=== PATIENT | female | born 1975 | race African-American/Black ===

== ENCOUNTER 2016-07-06 13:37 | Inpatient (IN) | payer MEDICARE ==
--- NOTE | ~2016-07-06 | EKG ---
PATIENT: MIKKI ESTRADA UNIT #: [id number] Ventricular Rate: 87 BPM Atrial Rate: 87 BPM P-R Interval: 136 ms QRS Duration: 80 ms Q-T Interval: 410 ms QTC Calculation(Bezet): 493 ms P Hart: 56 degrees Calculated R Hart: 66 degrees Calculated T Hart: 78 degrees Diagnosis Line: Normal sinus rhythm Diagnosis Line: Prolonged QT Diagnosis Line: Abnormal ECG Diagnosis Line: When compared with ECG of 06-JUL-2016 18:56, Diagnosis Line: No significant change was found Diagnosis Line: Confirmed by MCYHAL DINERO MD ([id number]) on Diagnosis Line: 07/14/2016 1:31:25 PM INTERPRETING MD: SABRINA
--- NOTE | ~2016-07-06 | HP ---
Unit #: [id number] #: [id number] Patient: MIKKI ESTRADA [address] [place], [place] [address] [id number] MR#: [id number] NAME: MIKKI ESTRADA ROOM: Age: 41 Sex: F Admission Date: 07/06/2016 : 1975 Attending Physician: Jenae Solitario M.D. Primary Care Physician: Humberto Webber M.D. HISTORY AND PHYSICAL CHIEF COMPLAINT Fever. HISTORY OF PRESENT ILLNESS The patient is a 41-year-old female with past medical history of end-stage renal disease on dialysis, diabetes, chronic anemia, hypertension, hyperlipidemia, who presented to the emergency department for evaluation of the above. The patient states that she has not been feeling well since July 02, 2016. She states that she has had nausea, vomiting and diarrhea. She reports three to four bouts of nonbloody emesis and two to three bouts of nonbloody diarrhea within the past 24 hours. She denies any abdominal pain, no chest pain. She has had occasional cough. She has had chills and undocumented fever. She no longer makes but a few drops of urine some days. In the emergency department initial temperature was 103.1, pulse 121, respirations 25, oxygen saturation was 95% on room air. Chest x-ray shows no acute abnormality. White blood cell count is 15.8. Lactic acid is 1.8. She was given vancomycin in the emergency department as well as Tylenol. She is being admitted to [facility] for evaluation and further treatment. PAST MEDICAL HISTORY 1. Hospitalized at [facility] within the past couple of months for fistula placement. 2. Admission to [facility] December 05-2013 for hypertensive urgency. 3. End-stage renal disease on dialysis Saturday, Saturday, Saturday, followed by Dr. Valdivia. 4. Diabetes. 5. Hypertension. 6. Hyperlipidemia. PAST SURGICAL HISTORY 1. Fistula placement. 2. Disc surgery. SOCIAL HISTORY The patient lives with her mom. There is no tobacco or alcohol use. Her code status is a full code. Unit #: [id number] #: [id number] Patient: MIKKI ESTRADA FAMILY HISTORY Family history is notable for her dad having a cerebrovascular accident. ALLERGIES No known allergies. HOME MEDICATIONS Include Hydralazine, Coreg, Imdur, Xifaxan. Home medications will need to be reviewed and verified. REVIEW OF SYSTEMS A complete review of systems is negative except as indicated in the HPI. DIAGNOSTIC STUDIES IMAGING: Chest x-ray shows no acute abnormality. LABORATORY: Lactic acid is 1.8. Comprehensive metabolic panel notable for sodium of 133, chloride is 95, CO2 is 20, glucose 283, BUN 89, creatinine 16.5, anion gap is 18, calcium is 7.2 but corrects to 8 when albumin of 3 is accounted for, amylase and lipase are normal. Complete blood count notable for white blood cell count of 15.8, hemoglobin 10.1, hematocrit 32.8, platelets 120. BNP is 923. PHYSICAL EXAMINATION VITAL SIGNS: Temperature is 103.1. Pulse 121. Respirations 25. Blood pressure 155/86. Oxygen saturation 95% on room air. GENERAL: The patient is an -[place] female who is sleeping but wakes to voice. HEENT: The head is atraumatic. Mucous membranes are moist. NECK: Neck is supple. Trachea is midline. CARDIOVASCULAR: Regular rate and rhythm. LUNGS: Demonstrate decreased breath sounds at the bases. Breathing is not labored. ABDOMEN: Abdomen is obese, soft, nontender, with bowel sounds present all four quadrants. EXTREMITIES: The patient does have a fistula in the left upper extremity. There is no thrill or bruit. There is no pedal edema. NEUROLOGIC: The patient is oriented x3. She follows commands. PSYCHIATRIC: Mood and affect are normal. The patient is cooperative. SKIN: The right upper chest has a vascular access device with adjacent yellow crust. There is no appreciable erythema of the surrounding skin. ASSESSMENT The patient is a 41-year-old female with: 1. Sepsis with initial lactic acid of 1.8. 2. Possible catheter-related infection. The patient received vancomycin in the emergency department. 3. Uncontrolled diabetes with an initial glucose of 283. 4. End-stage renal disease on dialysis Saturday, Saturday, Saturday. The patient's last dialysis was on July 02, 2016. 5. Chronic anemia. The patient's hemoglobin was 11.2 on May 24, 2015. It is 10.1 today. 6. Hypocalcemia. Calcium corrects to 8. 7. Hypertension. 8. Hyperlipidemia. PLAN 1. Admit to intermediate level. Unit #: [id number] #: [id number] Patient: MIKKI ESTRADA 2. Consistent carb renal diet when awake and passes bedside swallow. 3. Blood cultures x2. 4. Sepsis protocol with repeat lactic acid. 5. Vancomycin IV and meropenem IV pending Dr. Cao's recommendations. 6. Consult Dr. Cao regarding sepsis and possible catheter-related infection. 7. Cath UA if possible with culture and sensitivity. 8. Stool studies, including ova and parasites, C. diff culture and sensitivity. 9. Two-D echo for further evaluation of sepsis with unknown source. 10. Hemoglobin A1C. 11. Low dose sliding scale insulin with Accu-Chek. 12. Consult Dr. Valdivia regarding end-stage renal disease and dialysis needs. 13. Check EKG with cardiac enzymes. 14. Repeat labs in the morning. 15. SCDs for DVT prophylaxis. 16. Additional workup and consultants based on above. Dictated by Brenda Bell/sharlene TD: 07/06/2016 19:18 JOB #: [id number] HISTORY AND PHYSICAL Page 1 of 1 X Michelle Lyons MD X HISTORY AND PHYSICAL
--- NOTE | ~2016-07-06 | CT90 ---
[facility] A Service of [facility] RADIOLOGY TEXT RESULTS PATIENT: MIKKI ESTRADA LOCATION: [facility] 55 : 75 UNIT #: [id number] AGE: [address]: Kika Lassiter MD SEX: F ORDER DR: [id number] [facility] [address] [facility] [place], [place] [address] [id number] I MR#: [id number] Acc #: [id number] NAME: MIKKI ESTRADA : 1975 SEX: F STUDY DATE/TIME: 07/10/2016 9:16 UNIT: [facility] ROOM: [facility] STUDY DESCRIPTION: CT Lower Ext Lt W Cont Attending Physician: Kika Lassiter M.D. Ordering Physician: Marko Brandt M.D. Primary Care Physician: Humberto Webber M.D. MEDICAL IMAGING REPORT This report is preliminary unless electronic signature is present EXAM CT pelvis and hips-attention left hip with IV contrast 07/10/2016. HISTORY History sheet states MRSA sepsis, left hip pain since 07/02/2016. Infection somewhere in body but not sure where. Dialysis. No correlative studies. The scan was performed with a 2 minute delay status post IV contrast injection completion. The patient reportedly gets dialysis sedated. The CT exam was performed with one or more of the following radiation dose reduction techniques: automatic exposure control, adjustment of mA and/or kV according to patient size, and iterative reconstruction. FINDINGS There is a minimal left hip effusion present lateral to the femoral head-neck junction. There is no sizeable effusion or periarticular inflammation to strongly suggest septic arthritis. The right hip is unremarkable. Facet joints are unremarkable. No fracture or osseous lesion is noted. There is lower lumbar degenerative disc disease and facet arthrosis with no obvious inflammatory process. Muscles are unremarkable. No internal pelvic abnormality is noted. No fluid collection is noted. [facility] A Service of [facility] RADIOLOGY TEXT RESULTS PATIENT: MIKKI ESTRADA LOCATION: [facility] 5507-12 : 75 UNIT #: [id number] AGE: [address]: Kika Lassiter MD SEX: F ORDER DR: There is no evidence of osteonecrosis of the femoral heads. IMPRESSION 1. Small left hip effusion without periarticular inflammation. Lack of a sizable effusion and inflammation goes against septic arthritis. 2. No obvious right hip or sacroiliac joint septic arthritis. 3. L5-S1 degenerative disc disease and facet arthrosis without obvious inflammatory component or fluid collection. 4. No internal pelvic pathology noted. Dictated by... Cristina Carvajal M.D. THIS IS AN ELECTRONICALLY VERIFIED REPORT Cristina Carvajal M.D. at 07/11/2016 9:45 AM ALISON/annette TD: 07/10/2016 14:03 JOB #: [id number] MEDICAL IMAGING REPORT Page 1 of 1 COPY
--- NOTE | ~2016-07-06 | DS ---
Unit #: [id number] #: [id number] Patient: MIKKI ESTRADA [id number] [address] [place], [place] [address] [id number] Angelia MR#: [id number] NAME: MIKKI ESTRADA ROOM: [facility] Age: 41 Sex: F Admission Date: 07/06/2016 : 1975 Discharge Date: Attending Physician: Kika Lassiter M.D. Primary Care Physician: Humberto Webber M.D. DISCHARGE SUMMARY ADDENDUM DISCHARGE MEDICATIONS 1. Coumadin 5 mg p.o. daily. 2. Xifaxan 550 p.o. t.i.d. 3. Coreg 25 p.o. b.i.d. 4. Hydralazine 50 t.i.d. 5. Renagel 2400 t.i.d. 6. Protonix 40 p.o. b.i.d. 7. Imdur ER 60 daily. 8. Vancomycin 1250 mg IV during dialysis. Pharmacy to dose. Stop date 08/18/2016. 9. Lantus 20 units subcu q. 10:00 p.m. 10. Lovenox 80 mg subcu daily. Stop if INR greater than or equal to 2.0. HOSPITALIZATION COURSE Please see the detailed discharge summary dictated by me on July 13, 2016. 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 Cardiology has been seeing. They recommended Lovenox and Coumadin. I gave prescriptions. Currently INR is subtherapeutic. Continue Lovenox until greater than or equal to 2.0 INR. Anemia, patient was seen by Dr. Farrar. Patient had EGD which shows gastritis and duodenal ulcer. I talked with Dr. Farrar. Okay to continue with Lovenox and Coumadin. Discussed with Dr. Atwood of renal. She told to continue with Lovenox 80 subcu daily for bridging. DISPOSITION Discontinue home with home health. FOLLOWUP 1. Follow with Dr. Simpson in two-weeks' time. 2. Follow with Dr. Farrar in two-weeks' time. Discharge time taken is 45 minutes. Dictated by... Unit #: [id number] #: [id number] Patient: MIKKI ESTRADA M.D. KJ/cf TD: 07/16/2016 19:03 JOB #: [id number] DISCHARGE SUMMARY Page 1 of 1 X Kika Lassiter MD DISCHARGE SUMMARY
--- NOTE | ~2016-07-06 | DS ---
Unit #: [id number] #: [id number] Patient: MIKKI ESTRADA [id number] [address] [address] [id number] I MR#: [id number] NAME: MIKKI ESTRADA ROOM: [facility] Age: 41 Sex: F Admission Date: 07/06/2016 : 1975 Discharge Date: Attending Physician: Kika Lassiter M.D. Primary Care Physician: Humberto Webber M.D. DISCHARGE SUMMARY DISCHARGE DIAGNOSES 1. 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 No infectious endocarditis. 2. Abdominal pain, nausea, vomiting and diarrhea, most likely from sepsis, resolved. 3. Endstage renal disease, on hemodialysis, with hyperkalemia, metabolic acidosis. 4. Anemia secondary to chronic kidney disease. 5. Moderate protein malnutrition. 6. Diabetes mellitus type 2, uncontrolled, on insulin. 7. Hypertension, uncontrolled. 8. Orthostatic hypotension, resolved. 9. Hyperphosphatemia. 10. Thrombocytopenia secondary to likely chronic kidney disease. 11. Metabolic acidosis. 12. Morbid obesity, body mass index 43. CONSULTATIONS 1. Dr. Dumont. 2. Dr. Brandt. PROCEDURES The patient had a KATIA, which shows large protruding mobile echogenicity in the superior vena cava, 4.4 cm x 1.2 cm. Risk of embolization present. Ejection fraction 60%. Jryezmiv-lp-fwgntl concentric LVH present. Diastolic dysfunction present. DIAGNOSTIC TESTING LAB DATA TODAY: WBC 10.5, hemoglobin 7.5, platelets 409. Sodium 132, potassium 5.7, creatinine 16, carbon dioxide 17. Blood cultures are growing MRSA. Catheter tip shows normal phu. ALLERGIES None. DISCHARGE MEDICATIONS 1. Xifaxan 550 mg t.i.d. 2. Coreg 25 p.o. b.i.d. 3. Hydralazine 50 mg t.i.d. 4. Renagel 2,400 mg t.i.d. with meals. 5. Imdur ER 60 daily. 6. IV vancomycin during dialysis for 6 weeks. 7. Lantus 55 units subcu b.i.d., home dose. Unit #: [id number] #: [id number] Patient: MIKKI ESTRADA HOSPITALIZATION COURSE A 41 year old admitted because of abdominal pain, nausea, vomiting. MRSA sepsis from catheter tip likely. Blood cultures are growing MRSA. Hemodialysis catheter tip has been removed. Currently repeat cultures are negative. Patient was started on broad-spectrum antibiotics. Currently on IV vancomycin. Dr. Brandt was closely following. His recommendation is to continue for 6 weeks because of abnormal KATIA. Abnormal KATIA with mobile thrombus, possible endovasculitis of superior vena cava. No infectious endocarditis per infectious disease. Patient was told to continue with IV antibiotics for 6 weeks. Patient will get hemodialysis and vancomycin during dialysis. Nephrology is aware of the antibiotic need. Endstage renal disease, on hemodialysis. Patient could not have dialysis yesterday because of AV fistula malfunction. They will try to do dialysis today. If not, the patient needs tunneled catheter before discharge. Currently patient has hypercalcemia, metabolic acidosis, hyperkalemia. She needs STAT dialysis according to nephrology. Anemia secondary to chronic kidney disease. No active bleeding. Continue with iron as needed. Sepsis from MRSA, resolved. Abdominal pain, nausea, vomiting secondary to sepsis, resolved. Diabetes mellitus type 2, uncontrolled. Continue with Lantus. Hypertension, uncontrolled. Continue with hydralazine. PLAN The patient will have dialysis today. If the AV fistula works, the patient will be discharged to continue with IV antibiotics for 6 weeks at dialysis. If the AV fistula does not work, patient needs to have a tunneled catheter before discharge. Discussed with Dr. Atwood. Patient will be discharged home after dialysis. Follow with PCP 1 week upon discharge. Follow with Dr. Lima, cardiology, in 3 weeks' time for superior vena cava thrombus. NOTE: Discharge time taken is 32 minutes. Dictated by... Brenda Wise/willem TD: 07/13/2016 14:00 JOB #: [id number] Unit #: [id number] #: [id number] Patient: MIKKI ESTRADA DISCHARGE SUMMARY Page 1 of 1 X Kika Lassiter MD DISCHARGE SUMMARY
--- NOTE | ~2016-07-06 | EKG ---
PATIENT: MIKKI ESTRADA UNIT #: [id number] Ventricular Rate: 104 BPM Atrial Rate: 104 BPM P-R Interval: 128 ms QRS Duration: 74 ms Q-T Interval: 360 ms QTC Calculation(Bezet): 473 ms P [place]: 64 degrees Calculated R [place]: 71 degrees Calculated T [place]: 67 degrees Diagnosis Line: Sinus tachycardia Diagnosis Line: Otherwise normal ECG Diagnosis Line: When compared with ECG of 30-NOV-2014 19:26, Diagnosis Line: T wave inversion no longer evident in Inferior Diagnosis Line: leads Diagnosis Line: Confirmed by HENRY JEAN-BAPTISTE MD ([id number]) on Diagnosis Line: 07/10/2016 3:12:53 PM INTERPRETING MD: ESTIVEN MCCARTHY
--- NOTE | ~2016-07-06 | CO ---
Unit #: [id number] #: [id number] Patient: MIKKI AMARAL [id number] [facility] [address] [facility] [place] [facility]. [place], [place] [address] [id number] I MR#: [id number] NAME: MIKKI AMARAL ROOM: 556 Age: 41 Sex: F Admission Date: 07/06/2016 : 1975 Attending Physician: Kika Lassiter M.D. Primary Care Physician: Humberto Webber M.D. Consultation Date: 07/07/2016 CONSULTATION REPORT HISTORY OF PRESENT ILLNESS Ms. Amaral is a 41-year-old woman relatively new to hemodialysis since 11/2015 related to diabetes and hypertension. The patient reports that she underwent dialysis as usual this past Saturday. Later in the day, she reports she began to feel ill and had several episodes of vomiting. She denied diarrhea. She denied blood in her vomitus. She reported that she does not know if she had a fever or not. She skipped her dialysis on Saturday stating that she felt bad and Saturday presented to the emergency room here where she was found to have a fever to greater than 103 with tachycardia. On evaluation here, she was noted by Infectious Disease to have pus draining from her dialysis catheter. She has been admitted for treatment and management. We were asked to assess her for her ESRD needs. At the moment, the patient is lying supine. She appears very comfortable. She is not a good historian and not volunteering to assist much giving typically 1 word answers to questions. At the moment, she denies pain and shortness of breath. PAST MEDICAL HISTORY Significant for diabetes and hypertension as noted above. She currently undergoes dialysis under the care of Dr. Schmitt at the [facility]. She has had previous access work done including a brachiobasilic fistula in her left upper arm. She reports she had not gone back for surgical followup. PAST SURGICAL HISTORY Dialysis fistula placement, several catheter placements this surgery. SOCIAL HISTORY The patient lives at home. She reports she has been using tobacco and alcohol. ALLERGIES None known. MEDICATIONS At the time of admission include hydralazine, Coreg, Imdur, and Xifaxan. Her diabetic medication is not listed unlike previous admissions. PHYSICAL EXAMINATION GENERAL: At the time of evaluation, the patient appeared comfortable in bed. VITAL SIGNS: She was afebrile at 99.3, but earlier had run into fever to 103.1, pulse was 79, respirations 20, blood pressure 109/58, oxygen was 94%, although previously she had been running in the high 90s. Unit #: [id number] #: [id number] Patient: MIKKI AMARAL HEENT: Grossly remarkable. There is no evidence of anomalies or trauma. NECK: Supple. There were no bruits. LUNGS: Clear to auscultation with rales or rhonchi. HEART: Regular rate with normal S1, S2. Gallop was not appreciated. ABDOMEN: Obese, but soft and nontender. No masses or organomegaly have been noted. GENITAL: Deferred. RECTAL: Deferred. EXTREMITIES: Show no lower extremity edema. She had a brachiobasilic fistula in her left arm, which had positive bruit, but was not well palpated. There was an overlying transposition scar. SKIN: Showed no rashes, pustules etc. She did have a tunneled catheter in her right upper chest. As the site was dressed, so I could not evaluate for drainage. NEUROLOGIC: Grossly unremarkable. She moved all extremities normally and answers questions appropriately. DIAGNOSTIC STUDIES LABORATORY RESULTS: Drawn this morning were notable for a serum potassium of 4.2, CO2 of 22, creatinine of 10.8 down from the day before 17.2 with a low calcium of 7.2 and elevated phosphorus of 7.4. Her albumin was 2.3 this morning down from 3.0 on admission. Hematology was notable for a hemoglobin of 9.0 down from 10 on admission with a white count of 11.5 down from 15.8 on admission, platelet count has been falling to 95 from 120,000. 3 sets of blood cultures are noted as being drawn on the , two of which are growing gram-positive cocci in clusters. ID and sensitivity are pending. Stool for enteric toxins was negative. Urine culture is still pending at this time. IMPRESSION 1. Bacteremia/sepsis associated with an infected tunneled dialysis catheter. I concur with Dr. Ojeda that the catheter needs to come out. We will likely need to have Vascular Surgery do this on this weekend. The patient is currently on vancomycin and meropenem. 2. End-stage renal disease. The patient underwent her dialysis treatment yesterday evening. Her volume status otherwise appeared decent. I think she can do fine without her catheter for a couple days while initial antibiotics were used to bring the infection under control. She will need to have a tunneled catheter placed again in a few days. Her fistula does not appear ready to be used. We need to get her to follow up with her surgeon as soon as possible for interventions to facilitate maturation of her fistula. 3. Hypertension. Her blood pressure here has been relatively decent on not much medication. We will maintain current treatment regimen. 4. Diabetes. Blood sugars here have been relatively decent, the highest being 283 on admission. Subsequently, she has fallen down into the 100s. We will follow with you. Dictated by... Brian Dumont M.D. SCHUYLER/north TD: 07/08/2016 23:24 JOB #: [id number] Unit #: [id number] #: [id number] Patient: MIKKI AMARAL CONSULTATION REPORT Page 1 of 1 X Brian Dumont Jr, MD X CONSULTATION REPORT
--- NOTE | ~2016-07-06 | OR ---
Unit #: [id number] #: [id number] Patient: MIKKI ESTRADA [id number] [address] [address] [id number] I MR#: [id number] NAME: MIKKI ESTRADA ROOM: [facility] Date of Procedure: 07/14/2016 Admission Date: 07/06/2016 Surgeon: Liu Farrar M.D. : 1975 Attending Physician: Kika Lassiter M.D. Primary Care Physician: Humberto Webber M.D. OPERATIVE REPORT PRIMARY CARE PHYSICIAN Humberto Webber MD. PREOPERATIVE DIAGNOSES 1. Anemia. 2. Epigastric pain, nausea, and vomiting. PROCEDURES PERFORMED Upper gastrointestinal endoscopy and biopsy. POSTOPERATIVE DIAGNOSES 1. The patient had a posterior duodenal ulcer with grayish-white ulcer base. It was about a centimeter in size in the posterior aspect of the duodenal bulb. 2. Mild prepyloric antral erosive gastritis. A biopsy was obtained from the antrum for CLOtest. 3. Distal grade 1 erosive esophagitis. 4. Rest of the examination up to third part of duodenum was normal. RECOMMENDATIONS 1. Pantoprazole 40 mg p.o. b.i.d. 2. 1600 calorie CCD diet. 3. Repeat CBC and CMP in the morning. SEDATION USED MAC. DESCRIPTION OF PROCEDURE Following detailed explanation of the potential risks and complications of an upper endoscopy, namely perforation, bleeding, and complication related to sedation, the patient was brought to GI lab and laid in the left lateral decubitus position. Lubricated tip of the Olympus video upper endoscope was passed through the bite block into the proximal esophagus under direct vision. The entire esophageal mucosa was examined. The patient was noted to have grade 1 distal erosive esophagitis. The scope was then advanced into the gastric cavity and the latter was insufflated. Mucosa of the fundus, body, and antrum was examined. Mild prepyloric antral erosive gastritis was noted in the form of erythema erosions in the antral area. Pylorus was intubated with visualization of the duodenal bulb. The latter was noted to have a posterior duodenal ulcer. This was about a centimeter in size with grayish-white ulcer base and no stigmata of recent bleed. The second and third part of duodenum was normal. Upon Unit #: [id number] #: [id number] Patient: MIKKI ESTRADA withdrawal and retroflexion, incisura, cardia, and greater curve was examined and a biopsy was obtained from the antrum for CLOtest. The scope was then withdrawn in the distal esophagus. The entire esophageal mucosa was examined all the way up to pharynx. No additional findings were noted. The patient tolerated the procedure without any postprocedure complications. Dictated by... Brenda Mary/north TD: 07/15/2016 17:47 JOB #: [id number] OPERATIVE REPORT Page 1 of 1 X Liu Farrar MD X PROCEDURE OPERATIVE NOTE
--- NOTE | ~2016-07-06 | CR72 ---
[facility] A Service of [facility] & [facility] RADIOLOGY TEXT RESULTS PATIENT: MIKKI ESTRADA LOCATION: [facility] [id number] : 75 UNIT #: [id number] AGE: [address]: Michelle Lyons MD SEX: F ORDER DR: [id number] [facility] [address] [facility]. [place], [place] [address] [id number] MR#: [id number] Acc #: [id number] NAME: MIKKI ESTRADA : 1975 SEX: F STUDY DATE/TIME: 07/06/2016 14:43 UNIT: RAGHU ROOM: STUDY DESCRIPTION: CR Chest Single View Portable Attending Physician: Jenae Solitario M.D. Ordering Physician: Jenae Solitario M.D. Primary Care Physician: Humberto Webber M.D. MEDICAL IMAGING REPORT This report is preliminary unless electronic signature is present EXAM Portable chest HISTORY Fever. Weakness. Cough and congestion today. FINDINGS Mild cardiac enlargement. Normal pulmonary vascularity. Mild chronic elevation of the right hemidiaphragm. No airspace infiltrates or interstitial edema or pleural effusion. Right IJ dual-lumen catheter extends into the right atrium, 3 cm beyond the junction of the SVC and right atrium. IMPRESSION No acute findings. Mild cardiac enlargement. Lungs are clear. Dictated by... Salazar Saucedo M.D. THIS IS AN ELECTRONICALLY VERIFIED REPORT Salazar Saucedo M.D. at 07/06/2016 10:38 PM DFL/pcl TD: 07/06/2016 17:48 JOB #: [id number] MEDICAL IMAGING REPORT Page 1 of 1 COPY
--- NOTE | ~2016-07-06 | OR ---
Unit #: [id number] #: [id number] Patient: MIKKI ESTRADA [id number] [address] [place], [place] [address] [id number] I MR#: [id number] NAME: MIKKI ESTRADA ROOM: [facility] Date of Procedure: 07/07/2016 Admission Date: 07/06/2016 Surgeon: Kofi Danielle M.D. : 1975 Attending Physician: Kika Lassiter M.D. Primary Care Physician: Humberto Webber M.D. OPERATIVE REPORT PREOPERATIVE DIAGNOSIS Infected right internal jugular tunneled catheter. POSTOPERATIVE DIAGNOSIS Infected right internal jugular tunneled catheter. PROCEDURE PERFORMED Removal of right internal jugular tunneled catheter. ANESTHESIA Local. INDICATIONS FOR PROCEDURE This is a 41-year-old, -Iranian female, with a left arm arteriovenous fistula which was functioning and right IJ tunneled catheter with positive blood cultures. She was recommended removal of the tunneled catheter. Risks and benefits were explained, and she agreed to proceed. DESCRIPTION OF PROCEDURE The patient's chest was cleaned, prepped, and draped in the usual sterile fashion. 1% lidocaine was infiltrated at the exit site and the cuff was dissected free with a hemostat and catheter was removed completely. No pus was encountered. Catheter tip was sent for culture and sensitivity. Pressure in the neck was used for hemostasis and dressings were placed. The patient tolerated the procedure well. Dictated by... Kofi Danielle M.D. SA/glennl TD: 07/10/2016 12:36 JOB #: [id number] Unit #: [id number] #: [id number] Patient: MIKKI ESTRADA OPERATIVE REPORT Page 1 of 1 X Kofi Danielle MD X PROCEDURE OPERATIVE NOTE
--- NOTE | ~2016-07-06 | CO ---
Unit #: [id number] #: [id number] Patient: MIKKI AMARAL [id number] [address] [address] [id number] I MR#: [id number] NAME: MIKKI AMARAL ROOM: 556 Age: 41 Sex: F Admission Date: 07/06/2016 : 1975 Attending Physician: Kika Lassiter M.D. Primary Care Physician: Humberto Webber M.D. Consultation Date: 07/14/2016 CONSULTATION REPORT REASON FOR CONSULTATION Nausea, vomiting, and severe anemia. HISTORY Ms. Amaral is a 41-year-old -Polish female who is on long-term hemodialysis because of end-stage renal disease. Patient has presented with a history of nausea and vomiting and anemia. She denies any overt GI bleed in the form of hematemesis, melena, or hematochezia. Patient says she has got pain in the epigastric area for the past few days. She does have a background history of diabetes with renal disease on hemodialysis as well as history of hypertension, hyperlipidemia. 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 There is also issue of MRSA catheter related sepsis with endovasculitis. Patient is therefore on IV antibiotics. At admission, she also had metabolic acidosis. She currently has anorexia, nausea, vomiting, and upper abdominal pain. PAST MEDICAL HISTORY 1. History of end-stage renal disease on hemodialysis. 2. History of uncontrolled hypertension. 3. History of diabetes. 4. Hypertension. 5. Hyperlipidemia. PAST SURGICAL HISTORY 1. Disc surgery. 2. AV fistula. SOCIAL HISTORY Lives with her mom. Does not smoke, drink alcohol. FAMILY HISTORY Significant for stroke in her father. ALLERGIES No known drug allergies. MEDICATIONS Her medications at home included: 1. Hydralazine. 2. Coreg. 3. Imdur XR. 4. Xifaxan. Unit #: [id number] #: [id number] Patient: MIKKI AMARAL REVIEW OF SYSTEMS A detailed review of organ system does not reveal any recent weight loss. No history of fevers, chills, or rigors. No headache, seizures, chest pain, syncope. No history of cough, expectoration, hemoptysis. No history of dysuria, hematuria, or pyuria. No history of focal seizures or extremity weakness. PHYSICAL EXAMINATION GENERAL: She is awake, alert, oriented, and appears unwell. VITAL SIGNS: Her vital signs are stable with a temperature of 99.3, pulse 88 per minute, respiratory rate 16, blood pressure 142/63. She weighs 276 pounds and appears obese. HEENT: She has moderate pallor, there being no icterus, lymphadenopathy. Grade 1 pitting peripheral edema. CARDIOVASCULAR: Normal heart sounds. No murmurs. LUNGS: Auscultation of the lungs reveal normal breath sounds. Good air entry. ABDOMEN: Soft, obese, nontender. Liver and spleen are not palpable. Bowel sounds normal. DIAGNOSTIC STUDIES LABORATORY: Lab evaluation shows a hemoglobin of 10 on admission, 7.5 now. The white count and platelet count are currently normal. BUN and creatinine are 66 and 10.9, glucose 263. Albumin is 2.3. LFTs are normal. CLINICAL IMPRESSION 1. Patient most likely had anemia of chronic kidney disease. 2. Underlying end-stage renal disease on hemodialysis. 3. 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 4. Background history of diabetes, hypertension, hyperlipidemia. MANAGEMENT PLAN A diagnostic endoscopy is in order because of her upper abdominal symptoms. Patient will be reviewed thereafter. Thank you for asking me to see this pleasant woman. I appreciate the consult. Dictated by... Brenda Mary/cuong TD: 07/15/2016 12:55 JOB #: [id number] CC: Humberto Webber M.D. Unit #: [id number] #: [id number] Patient: MIKKI AMARAL CONSULTATION REPORT Page 1 of 1 X Liu Farrar MD X CONSULTATION REPORT
--- NOTE | ~2016-07-06 | CR72 ---
[facility] A Service of [facility] & [facility] RADIOLOGY TEXT RESULTS PATIENT: MIKKI ESTRADA LOCATION: [place] [address] : [birth year] UNIT #: [id number] AGE: [address]: Kika Lassiter MD SEX: F ORDER DR: [id number] [facility] [address] [facility] [place] [facility]. [place], [place] [address] [id number] I MR#: [id number] Acc #: [id number] NAME: MIKKI ESTRADA : 1975 SEX: F STUDY DATE/TIME: 07/17/2016 9:59 UNIT: [facility] ROOM: [facility] STUDY DESCRIPTION: CR Chest Single View Portable Attending Physician: Kkia Lassiter M.D. Ordering Physician: Physician Non-Staff Primary Care Physician: Humberto Webber M.D. MEDICAL IMAGING REPORT This report is preliminary unless electronic signature is present EXAM Portable chest 07/17/16. INDICATIONS Fever, shortness of air today. COMPARISON AP portable chest with 07/06/2016. FINDINGS Right-side catheter has been removed. Cardiomegaly is stable. There is chronic elevation of the right hemidiaphragm. Lungs are clear. No pneumothorax. Dictated by... Harry Barrios Jr., M.D. THIS IS AN ELECTRONICALLY VERIFIED REPORT Harry Barrios Jr., M.D. at 07/17/2016 3:38 PM RLK/hazel TD: 07/17/2016 14:15 JOB #: [id number] MEDICAL IMAGING REPORT Page 1 of 1 COPY
--- NOTE | ~2016-07-06 | A ---
[facility] Nutrition Therapy DATE: 07/17/16 Patient: MIKKI ESTRADA Physician: FANY Address: [address] [facility] Room/Bed: [address] [place] [address], Zip: [place] [address] Admit Date: 07/06/16 Date of : [birth year] Height: 5 5 Weight: 270 122.8 NUTRITIONAL ASSESSMENT: REASON: LOS NUTRITION ASSESSMENT 41 yo female admitted for MRSA, sepsis, endocarditis, N/V/D, anemia PMH: ESRD on HD, DM, HTN, metabolic acidosis, HLD Anthropometrics: Ht: 65" Wt: 123.0 kg BMI: 45.1 Labs: Na+ 134 Gluc 156 BUN 46 Creat 9.1 Accuchecks 169-231 HgbA1C (from 07/06) 10.5 GFR 5.6 Meds: Coumadin, novolog, protonix, loperamide, zofran I/O & Bowel function: 1770/150, last BM 07/15, nauseated Skin Integrity: no breakdown or edema noted Diet: Regular Assessment: Chart reviewed, events noted. RD seeing pt for LOS nutrition assessment, presenting with morbid obesity and a BMI of 45.1. Pt originally admitted for sepsis, endocarditits. Pt had discharge orders yesterday, which have since been cancelled d/t fever. RD spoke with the pt at bedside. Pt reports decrease in appetite over the past couple of days due to nausea, but reports having a good appetite prior to that. Pt denies any vomiting today, and declines Nepro supplements stating she does not like them. RD observed the pt's lunch tray, which she consumed ~50% of. RD briefly discussed the importance of renal/ CC diet based on the pt's PMH. Pt nodded her head, and denied having any questions about her diet. Of note, the pt is on a regular diet at this time; however, she was previously ordered a CC/ renal diet. Pt has denied education in the past based on previous admission RD assessment. Dx: Impaired glycemic control RT likely poorly controlled DM AEB accuchecks 169-231, A1C 10.5. Intervention: 1. Diet education once appropriate 2. CC/ renal diet Monitoring, Evaluation and Goals: 1. Oral intake; tolerate >50% of meals 2. Improve labs; glucose, Na+, BUN, creat, GFR [facility] Nutrition Therapy DATE: 07/17/16 Patient: MIKKI ESTRADA Physician: FANY Address: [address] [place] [address] Room/Bed: [address] [place] [address], Zip: [place] [address] Admit Date: 07/06/16 Date of : [birth year] Height: 5 5 Weight: 270 122.8 3. Weight; promote gradual weight loss towards healthy BMI range Recommendations: 1. Add consistent carbohydrate/ renal diet restrictions if the pt's intake continues to be 50% of meals or greater. 2. Encourage adequate protein intake, as the pt has increased protein needs on HD. 3. Consult RD for diet education as needed. Pt is at mild nutritional risk. RD will follow hospital course per protocol. Respectfully, BELLA CATHERINE RD, LD Food and Nutritional Services [facility] cc: client file
--- NOTE | ~2016-07-06 | DS ---
Unit #: [id number] #: [id number] Patient: MIKKI ESTRADA [id number] [address] [place], [place] [address] [id number] I MR#: [id number] NAME: MIKKI ESTRADA ROOM: [facility] Age: 41 Sex: F Admission Date: 07/06/2016 : 1975 Discharge Date: Attending Physician: Kika Lassiter M.D. Primary Care Physician: Humberto Webber M.D. DISCHARGE SUMMARY ADDENDUM Please see detailed Discharge Summary dictated by me on July 13, 2016. DISCHARGE DIAGNOSES (continued) 13. 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 Patient was seen by Dr. Simpson of Cardiology. He started her on Coumadin. INR is still subtherapeutic, so today, he wants me to start her on Lovenox. I am going to give her a prescription for 80 mg subcutaneous daily which is the dose recommended by Renal because patient has end-stage renal disease. I discussed with Dr. Farrar. He is okay for me to start her on Lovenox and Coumadin. Dictated by... Brenda Wise/sd TD: 07/16/2016 20:16 JOB #: [id number] DISCHARGE SUMMARY Page 1 of 1 X Kika Lassiter MD X DISCHARGE SUMMARY
--- NOTE | ~2016-07-06 | CO ---
Unit #: [id number] #: [id number] Patient: MIKKI ESTRADA [id number] [address] [place], [place] [address] [id number] I MR#: [id number] NAME: MIKKI ESTRADA ROOM: 556 Age: 41 Sex: F Admission Date: 07/06/2016 : 1975 Attending Physician: Kika Lassiter M.D. Primary Care Physician: Humberto Webber M.D. Consultation Date: 07/12/2016 CONSULTATION REPORT PRIMARY CARE PHYSICIAN Humberto Webber M.D. REASON FOR CONSULTATION A large mobile echogenic density from SVC on KATIA. HISTORY OF PRESENTING ILLNESS This is a 41-year-old female with a prior history of end-stage renal disease, on hemodialysis; diabetes mellitus; anemia; hypertension; and hyperlipidemia. She presented to the ER with reports of chills, fever, nausea, vomiting, and diarrhea for about 40 days with nonbloody emesis and nonbloody diarrhea. In the ER, her temperature was 103.1 and her tunneled dialysis catheter had purulent drainage from it. A chest x-ray showed no active disease. Her lactic acid level was 1.8 and white blood cell count was 15.8. On 07/06/2016, blood cultures grew MRSA in 3 out of 3. Stool cultures were negative. On 07/08/2016, blood cultures were resend and today they are negative. We were asked to perform a KATIA, which was done on 07/11/2016. The KATIA showed a large 4 x 4 x 1.2 cm mobile echogenic density from the SVC causing stenosis of the SVC, LVEF 60%, lwgzxhrv-lb-ijpuft concentric left ventricular hypertrophy, giib-qb-odrssgsm mitral regurge, hetbolhx-px-wyldpt tricuspid regurge, and RVSP of 41 to 46 mmHg. It is felt that it is most likely a thrombus, but we cannot rule out vegetation at this time. The patient denies prior cardiac history or prior cardiac testing. Denies chest pain, palpitations, or shortness of air. She denies tobacco abuse or family history of premature coronary artery disease. PAST MEDICAL HISTORY 1. End-stage renal disease, on hemodialysis. 2. Diabetes mellitus. 3. Anemia. 4. Hypertension. 5. Hyperlipidemia. 6. Recent AV fistula creation at [facility]. PAST SURGICAL HISTORY 1. Disk surgery. 2. AV fistula creation in 2017. SOCIAL HISTORY She lives with her mother. Denies alcohol or tobacco abuse. Denies illicit drug use. Unit #: [id number] #: [id number] Patient: MIKKI ESTRADA FAMILY HISTORY She denies family history of premature coronary artery disease. ALLERGIES No known drug allergies. HOME MEDICATIONS Hydralazine 50 mg p.o. t.i.d., Coreg 25 mg p.o. b.i.d., Imdur ER 60 mg p.o. daily, Xifaxan 550 mg p.o. t.i.d. REVIEW OF SYSTEMS Otherwise, negative except for what was stated in the HPI. PHYSICAL EXAMINATION VITAL SIGNS: Temperature 98.1, heart rate 81, respiratory rate 18, blood pressure 170/95, height 65 inches, weight 126 kg. GENERAL: This is a 41-year-old female in bed, in no acute distress. HEENT: Head is atraumatic and normocephalic. Pupils are equal and round. Mucous membranes are moist. NECK: Supple. Trachea is midline. Negative for JVD. LUNGS: Clear and diminished in bases. Nonlabored respirations. CARDIOVASCULAR: S1, S2. Regular rate and rhythm. Negative for murmurs, rubs, or gallops. EXTREMITIES: Pulses are palpable. No pedal edema. No cyanosis. NEUROLOGIC: Alert and oriented x3. Moves all extremities equally and follows commands without difficulty. DIAGNOSTIC STUDIES LABORATORY RESULTS: Sodium 135, potassium 4.9, chloride 102, BUN 18, creatinine 14.4, glucose 253. Hemoglobin 8.2, hematocrit 26.3, white blood cell count 10.9, platelets 361. On 07/06/2016, troponin 0.20 and on 07/07/2016, troponin 0.10. IMAGING STUDIES: Chest x-ray showed no active disease. CT of the left hip showed small left hip effusion, but no obvious septic arthritis. CARDIOVASCULAR STUDIES: EKG shows normal sinus rhythm with a ventricular rate of 81. KATIA done on 07/11/2016 shows enlarged 4 x 4 x 1.2 cm mobile echogenic density from SVC, LVEF of 60%, yzbekffv-zu-oygrqi concentric left ventricular hypertrophy, dkje-db-idzdiujh MR, cvypxjui-qz-fbtusi TR, and RVSP of 41 to 46 mmHg. ASSESSMENT 1. Methicillin-resistant Staphylococcus aureus bacteremia, likely associated with infected tunneled dialysis catheter. 2. End-stage renal disease, on hemodialysis. 3. Valvular heart disease - yxgovnft-ud-svmigz tricuspid regurgitation, nqss-eq-gbnipvyw mitral regurgitation, left ventricular ejection fraction 60% per transesophageal echocardiogram on 07/11/2016. 4. Hypertension/hyperlipidemia/diabetes mellitus. 5. Anemia. 6. Large mobile echogenic density of superior vena cava on transesophageal echocardiogram on 07/11/2016. 7. Indeterminate troponin. PLAN Unit #: [id number] #: [id number] Patient: MIKKI ESTRADA 1. Monitor troponin and EKG. 2. Check fasting lipid profile. 3. Antibiotics per ID. Thank you for asking us to see this patient. We appreciate the consult. Dictated by... IAN Carrasco/north TD: 07/13/2016 06:29 JOB #: [id number] CONSULTATION REPORT Page 1 of 1 X X CONSULTATION REPORT
--- NOTE | ~2016-07-06 | DS ---
Unit #: [id number] #: [id number] Patient: MIKKI ESTRADA [id number] [address] [place], [place] [address] [id number] I MR#: [id number] NAME: MIKKI ESTRADA ROOM: [facility] Age: 41 Sex: F Admission Date: 07/06/2016 : 1975 Discharge Date: Attending Physician: Kika Lassiter M.D. Primary Care Physician: Humberto Webber M.D. DISCHARGE SUMMARY ADDENDUM Please see detailed Discharge Summary dictated on July 16 and July 13. Patient was not discharged on July 16, 2016, because the patient had a fever of about 102 after dialysis. Repeat blood cultures have been done which are negative. Patient was seen by Infectious Disease. They recommended to continue with current antibiotic course with no change in medications. For her SVC thrombus, the patient was started on Lovenox and Coumadin. INR is subtherapeutic. Continue with Lovenox until INR is greater than or equal to 2. ALLERGIES Latex. DISCHARGE MEDICATIONS 1. Lovenox 80 mg subcutaneous daily, stop if INR greater than or equal to 2. 2. Xifaxan 550 p.o. 3 times daily. 3. Coumadin 5 mg p.o. daily. 4. Phenergan 12.5 p.o. q.6 p.r.n. nausea. 5. Coreg 25 p.o. b.i.d. 6. Norvasc 10 daily. 7. Hydralazine 50 at 3 times daily. 8. Renagel 2400 p.o. 3 times daily with meals. 9. Protonix 40 p.o. b.i.d. 10. Imdur-ER 120 daily. 11. Lantus 20 units subcutaneous at 10 p.m. daily. 12. Vancomycin IV during dialysis, stop date August 18, 2016. Renal service to arrange and monitor. Discussed with Nephrology and Infectious Disease. Discharge time taken is 45 minutes. Dictated by... Brenda Wise TD: 07/18/2016 15:45 JOB #: [id number] Unit #: [id number] #: [id number] Patient: LÓPEZ ESTRADAICIA DISCHARGE SUMMARY Page 1 of 1 X Kika Lassiter MD X DISCHARGE SUMMARY
--- NOTE | ~2016-07-06 | BMI ---
[facility] Nutrition Therapy DATE: 07/07/16 Patient: MIKKI ESTRADA Physician: FANY Address: [address] [place] [address] Room/Bed: [address] [place] [address], Zip: [place] [address] Admit Date: 07/06/16 Date of : 75 Height: 5 5 Weight: 271 123.2 HIGH BMI NOTE: ANTHROPOMETRICS: HT: 65" WT: 123.2 KG BMI: 45.2 DIET: NO DIET ORDERED RECOMMENDATIONS: 1. ONCE FEASIBLE, ADVANCE THE PT TO A HEART HEALTHY DIET TO PROMOTE GRADUAL WEIGHT LOSS. Respectfully, BELLA CATHERINE RD, LD Food and Nutritional Services [facility] cc: client file
[~2016-07-06 13:37] MED LIST: BAYER CHEWABLE81 MG PO; GLIPIZIDE10 MG PO; GLYNASE PO; HYDROCHLOROTHIA25 MG PO; K-DUR10 MEQ PO; LANTUS100 U/ML SUBQ; LASIX20 MG PO; LIPITOR20 MG PO; LOTREL PO; METOPROLOL TAR100 MG PO; NEURONTIN PO; NORVASC10 MG PO; NOVOLOG100 U/M2 SUBQ; TOPROL XL PO; VITAMIN D 22000 UNIT PO; ZESTRIL40 MG PO
[2016-07-06 14:55] LABS: BASOPHIL# 0.1 X10e3 (0-0.3); BASOPHIL% 0.4 % (0-2.5); HEMATOCRIT 32.8 % (35.0-45.0); HEMOGLOBIN 10.1 gm/dL (12.0-16.0); LYMPHOCYTE# 0.5 X10e3 (1.0-3.5); LYMPHOCYTE% 3.2 % (17.0-45.0); MEAN CELL VOLUME 83.6 FL (83-96); MEAN CORPUSCULAR HEMOGLOBIN 25.7 PG (28-34); MEAN CORPUSCULAR HGB CONC 30.7 g/dL (30-36); MEAN PLATELET VOLUME 9.4 FL (6.5-11.5); MONOCYTE# 0.8 X10e3 (0-1.0); NEUTROPHIL# 14.4 X10e3 (1.5-7.1); NEUTROPHIL% 91.4 % (40-75); PLATELET COUNT 120 X10e3 (140-420); RED BLOOD COUNT 3.93 X10e (3.90-5.30); WHITE BLOOD COUNT 15.8 X10e3 (4.0-10.5)
[2016-07-06 14:57] LABS: DIFF IND YES
[2016-07-06] MEDS ORDERED: XIFAXAN550 MG PO (15:03)
[2016-07-06] MEDS ORDERED: HYDRALAZINE HCL50 MG PO (15:03)
[2016-07-06] MEDS ORDERED: IMDUR-ER60 M2 PO (15:03)
[2016-07-06] MEDS ORDERED: CARVEDILOL25 MG PO (15:03)
[2016-07-06] MEDS ORDERED: PATIENT'S PHARMACY (15:04)
[2016-07-06 15:17] LABS: BILIRUBIN, DIRECT 0.1 mg/dL (0.0-0.2); BILIRUBIN,INDIRECT 0.1 mg/dL (0.0-0.9); BILIRUBIN,TOTAL 0.2 mg/dL (0.2-2.0); BUN/CREATININE RATIO 5.39; CALCIUM SERUM 7.2 mg/dL (8.4-10.2); CREATININE SERUM 16.5 mg/dL (0.6-1.4); GLOM FILT RATE Estimated 2.7 mL/min (>60); PROTEIN TOTAL SERUM 7.9 g/dL (6.0-8.3)
[2016-07-06 15:21] LABS: RBC NORMAL YES
[2016-07-06 15:22] LABS: PLATELET ESTIMATE NORMAL (NORMAL)
[2016-07-06 20:44] LABS: %MB 0.4 % (0.0-4.0); MB 1.2 ng/ml
[2016-07-07 02:42] LABS: BASOPHIL# 0.1 X10e3 (0-0.3); BASOPHIL% 0.6 % (0-2.5); EOSINOPHIL% 0.3 % (0.0-7.0); HEMATOCRIT 31.3 % (35.0-45.0); HEMOGLOBIN 9.6 gm/dL (12.0-16.0); LYMPHOCYTE# 1.1 X10e3 (1.0-3.5); LYMPHOCYTE% 7.6 % (17.0-45.0); MEAN CELL VOLUME 83.1 FL (83-96); MEAN CORPUSCULAR HEMOGLOBIN 25.5 PG (28-34); MEAN CORPUSCULAR HGB CONC 30.7 g/dL (30-36); MONOCYTE# 1.3 X10e3 (0-1.0); MONOCYTE% 8.6 % (3.0-12.0); NEUTROPHIL# 12.2 X10e3 (1.5-7.1); NEUTROPHIL% 82.9 % (40-75); PLATELET COUNT 106 X10e3 (140-420); RED BLOOD COUNT 3.77 X10e (3.90-5.30); RED CELL DISTRIBUTION WIDTH 16.8 % (11.0-15.5); WHITE BLOOD COUNT 14.7 X10e3 (4.0-10.5)
[2016-07-07 02:43] LABS: DIFF IND NO
[2016-07-07 02:57] LABS: ALBUMIN SERUM 2.7 g/dL (3.5-5.0); BILIRUBIN,TOTAL 0.8 mg/dL (0.2-2.0); BUN/CREATININE RATIO 5.17; CALCIUM SERUM 6.8 mg/dL (8.4-10.2); CREATININE SERUM 17.2 mg/dL (0.6-1.4); GLOM FILT RATE Estimated 2.6 mL/min (>60); MAGNESIUM 2.1 mg/dL (1.6-3.0); PHOSPHOROUS 7.4 mg/dL (2.5-4.6); POTASSIUM 4.5 mmol/L (3.5-5.1); PROTEIN TOTAL SERUM 7.5 g/dL (6.0-8.3)
[2016-07-07 03:16] LABS: %MB 0.7 % (0.0-4.0); MB 2.3 ng/ml
[2016-07-08 06:06] LABS: HEMATOCRIT 29.7 % (35.0-45.0); MEAN CELL VOLUME 84.2 FL (83-96); MEAN CORPUSCULAR HEMOGLOBIN 25.5 PG (28-34); MEAN CORPUSCULAR HGB CONC 30.3 g/dL (30-36); MEAN PLATELET VOLUME 11.2 FL (6.5-11.5); RED BLOOD COUNT 3.53 X10e (3.90-5.30); RED CELL DISTRIBUTION WIDTH 17.7 % (11.0-15.5); WHITE BLOOD COUNT 11.5 X10e3 (4.0-10.5)
[2016-07-08 07:02] LABS: ALBUMIN SERUM 2.3 g/dL (3.5-5.0); BILIRUBIN,TOTAL 0.5 mg/dL (0.2-2.0); BUN/CREATININE RATIO 4.35; CALCIUM SERUM 7.3 mg/dL (8.4-10.2); CREATININE SERUM 10.8 mg/dL (0.6-1.4); GLOM FILT RATE Estimated 4.6 mL/min (>60); POTASSIUM 4.2 mmol/L (3.5-5.1); PROTEIN TOTAL SERUM 6.4 g/dL (6.0-8.3)
[2016-07-09 06:08] LABS: HEMATOCRIT 27.6 % (35.0-45.0); HEMOGLOBIN 8.6 gm/dL (12.0-16.0); MEAN CORPUSCULAR HEMOGLOBIN 25.7 PG (28-34); MEAN PLATELET VOLUME 10.9 FL (6.5-11.5); RED BLOOD COUNT 3.33 X10e (3.90-5.30); RED CELL DISTRIBUTION WIDTH 17.2 % (11.0-15.5); WHITE BLOOD COUNT 10.5 X10e3 (4.0-10.5)
[2016-07-09 06:52] LABS: ALBUMIN SERUM 2.3 g/dL (3.5-5.0); BILIRUBIN,TOTAL 0.3 mg/dL (0.2-2.0); BUN/CREATININE RATIO 5.23; CALCIUM SERUM 7.2 mg/dL (8.4-10.2); GLOM FILT RATE Estimated 3.7 mL/min (>60); MAGNESIUM 2.3 mg/dL (1.6-3.0); PHOSPHOROUS 7.6 mg/dL (2.5-4.6); POTASSIUM 4.5 mmol/L (3.5-5.1); PROTEIN TOTAL SERUM 6.4 g/dL (6.0-8.3)
[2016-07-09 06:55] LABS: CREATININE SERUM 12.8 mg/dL (0.6-1.4)
[2016-07-10 05:37] LABS: HEMATOCRIT 27.2 % (35.0-45.0); HEMOGLOBIN 8.3 gm/dL (12.0-16.0); MEAN CELL VOLUME 83.4 FL (83-96); MEAN CORPUSCULAR HEMOGLOBIN 25.6 PG (28-34); MEAN CORPUSCULAR HGB CONC 30.7 g/dL (30-36); MEAN PLATELET VOLUME 10.5 FL (6.5-11.5); RED BLOOD COUNT 3.26 X10e (3.90-5.30); WHITE BLOOD COUNT 12.1 X10e3 (4.0-10.5)
[2016-07-10 06:45] LABS: BUN/CREATININE RATIO 6.21; CALCIUM SERUM 6.9 mg/dL (8.4-10.2); GLOM FILT RATE Estimated 3.3 mL/min (>60); MAGNESIUM 2.5 mg/dL (1.6-3.0); POTASSIUM 4.4 mmol/L (3.5-5.1)
[2016-07-11 06:18] LABS: HEMATOCRIT 26.5 % (35.0-45.0); HEMOGLOBIN 8.3 gm/dL (12.0-16.0); MEAN CELL VOLUME 82.2 FL (83-96); MEAN CORPUSCULAR HEMOGLOBIN 25.7 PG (28-34); MEAN CORPUSCULAR HGB CONC 31.3 g/dL (30-36); MEAN PLATELET VOLUME 10.2 FL (6.5-11.5); RED BLOOD COUNT 3.22 X10e (3.90-5.30); RED CELL DISTRIBUTION WIDTH 17.3 % (11.0-15.5); WHITE BLOOD COUNT 9.8 X10e3 (4.0-10.5)
[2016-07-11 06:45] LABS: ALBUMIN SERUM 2.3 g/dL (3.5-5.0); BILIRUBIN,TOTAL 0.8 mg/dL (0.2-2.0); BUN/CREATININE RATIO 5.95; CALCIUM SERUM 7.2 mg/dL (8.4-10.2); CREATININE SERUM 12.1 mg/dL (0.6-1.4); MAGNESIUM 2.5 mg/dL (1.6-3.0); PHOSPHOROUS 5.8 mg/dL (2.5-4.6); POTASSIUM 4.9 mmol/L (3.5-5.1); PROTEIN TOTAL SERUM 6.5 g/dL (6.0-8.3)
[2016-07-12 06:53] LABS: HEMATOCRIT 26.3 % (35.0-45.0); HEMOGLOBIN 8.2 gm/dL (12.0-16.0); MEAN CELL VOLUME 82.5 FL (83-96); MEAN CORPUSCULAR HEMOGLOBIN 25.7 PG (28-34); MEAN CORPUSCULAR HGB CONC 31.1 g/dL (30-36); MEAN PLATELET VOLUME 9.3 FL (6.5-11.5); RED BLOOD COUNT 3.19 X10e (3.90-5.30); RED CELL DISTRIBUTION WIDTH 17.1 % (11.0-15.5); WHITE BLOOD COUNT 10.9 X10e3 (4.0-10.5)
[2016-07-12 07:28] LABS: BUN/CREATININE RATIO 6.11; CALCIUM SERUM 7.5 mg/dL (8.4-10.2); CREATININE SERUM 14.4 mg/dL (0.6-1.4); GLOM FILT RATE Estimated 3.2 mL/min (>60); POTASSIUM 4.9 mmol/L (3.5-5.1)
[2016-07-13 06:54] LABS: HEMATOCRIT 24.3 % (35.0-45.0); HEMOGLOBIN 7.5 gm/dL (12.0-16.0); MEAN CELL VOLUME 82.1 FL (83-96); MEAN CORPUSCULAR HEMOGLOBIN 25.4 PG (28-34); MEAN PLATELET VOLUME 9.4 FL (6.5-11.5); RED BLOOD COUNT 2.95 X10e (3.90-5.30); WHITE BLOOD COUNT 10.5 X10e3 (4.0-10.5)
[2016-07-13 08:33] LABS: BUN/CREATININE RATIO 6.43; CALCIUM SERUM 7.5 mg/dL (8.4-10.2); GLOM FILT RATE Estimated 2.8 mL/min (>60)
[2016-07-13 08:34] LABS: POTASSIUM 5.7 mmol/L (3.5-5.1)
[2016-07-13 22:58] LABS: INR 0.9; PROTHROMBIN TIME (PATIENT) 9.7 SECONDS (9.6-11.5)
[2016-07-14 06:33] LABS: HEMOGLOBIN 8.6 gm/dL (12.0-16.0); MEAN CELL VOLUME 81.3 FL (83-96); MEAN PLATELET VOLUME 8.6 FL (6.5-11.5); RED BLOOD COUNT 3.32 X10e (3.90-5.30); RED CELL DISTRIBUTION WIDTH 16.4 % (11.0-15.5)
[2016-07-14 06:50] LABS: BUN/CREATININE RATIO 6.05; CALCIUM SERUM 8.1 mg/dL (8.4-10.2); CREATININE SERUM 10.9 mg/dL (0.6-1.4); GLOM FILT RATE Estimated 4.5 mL/min (>60); MAGNESIUM 2.6 mg/dL (1.6-3.0); PHOSPHOROUS 6.4 mg/dL (2.5-4.6)
[2016-07-14 06:55] LABS: PROTHROMBIN TIME (PATIENT) 10.1 SECONDS (9.6-11.5)
[2016-07-15 05:39] LABS: HEMATOCRIT 26.3 % (35.0-45.0); HEMOGLOBIN 8.2 gm/dL (12.0-16.0); MEAN CELL VOLUME 82.3 FL (83-96); MEAN CORPUSCULAR HEMOGLOBIN 25.7 PG (28-34); MEAN CORPUSCULAR HGB CONC 31.2 g/dL (30-36); MEAN PLATELET VOLUME 8.8 FL (6.5-11.5); RED BLOOD COUNT 3.19 X10e (3.90-5.30); RED CELL DISTRIBUTION WIDTH 16.7 % (11.0-15.5); WHITE BLOOD COUNT 11.9 X10e3 (4.0-10.5)
[2016-07-15 06:02] LABS: ALBUMIN SERUM 2.4 g/dL (3.5-5.0); BILIRUBIN,TOTAL 0.5 mg/dL (0.2-2.0); BUN/CREATININE RATIO 6.24; CREATININE SERUM 12.5 mg/dL (0.6-1.4); GLOM FILT RATE Estimated 3.8 mL/min (>60); MAGNESIUM 2.6 mg/dL (1.6-3.0); PROTEIN TOTAL SERUM 6.7 g/dL (6.0-8.3)
[2016-07-15 06:06] LABS: POTASSIUM 5.7 mmol/L (3.5-5.1)
[2016-07-15 06:07] LABS: PROTHROMBIN TIME (PATIENT) 10.1 SECONDS (9.6-11.5)
[2016-07-16 06:03] LABS: HEMATOCRIT 27.5 % (35.0-45.0); HEMOGLOBIN 8.6 gm/dL (12.0-16.0); MEAN CELL VOLUME 82.7 FL (83-96); MEAN CORPUSCULAR HEMOGLOBIN 25.7 PG (28-34); MEAN CORPUSCULAR HGB CONC 31.1 g/dL (30-36); MEAN PLATELET VOLUME 8.4 FL (6.5-11.5); RED BLOOD COUNT 3.33 X10e (3.90-5.30); RED CELL DISTRIBUTION WIDTH 17.1 % (11.0-15.5); WHITE BLOOD COUNT 14.2 X10e3 (4.0-10.5)
[2016-07-16 06:21] LABS: PROTHROMBIN TIME (PATIENT) 10.6 SECONDS (9.6-11.5)
[2016-07-16 07:03] LABS: BUN/CREATININE RATIO 6.08; CALCIUM SERUM 8.2 mg/dL (8.4-10.2); CREATININE SERUM 14.8 mg/dL (0.6-1.4); GLOM FILT RATE Estimated 3.1 mL/min (>60); MAGNESIUM 2.6 mg/dL (1.6-3.0)
[2016-07-16 07:08] LABS: POTASSIUM 6.5 mmol/L (3.5-5.1)
[2016-07-17 00:59] LABS: HA AB IGM (HEPPAN) Nonreactive (()); HB CORE AB IGM (HEPPAN) Nonreactive (Nonreactive); HB S AG (HEPPAN) Nonreactive (Nonreactive); HEP C AB (HEPPAN) Nonreactive (Nonreactive)
[2016-07-17 06:43] LABS: INR 1.2; PROTHROMBIN TIME (PATIENT) 12.5 SECONDS (9.6-11.5)
[2016-07-17 06:56] LABS: BUN/CREATININE RATIO 5.05; CALCIUM SERUM 8.4 mg/dL (8.4-10.2); CREATININE SERUM 9.1 mg/dL (0.6-1.4); GLOM FILT RATE Estimated 5.6 mL/min (>60); MAGNESIUM 2.3 mg/dL (1.6-3.0); POTASSIUM 4.9 mmol/L (3.5-5.1)
[2016-07-17 10:45] LABS: HEMATOCRIT 28.3 % (35.0-45.0); HEMOGLOBIN 8.7 gm/dL (12.0-16.0); MEAN CELL VOLUME 82.2 FL (83-96); MEAN CORPUSCULAR HEMOGLOBIN 25.4 PG (28-34); MEAN CORPUSCULAR HGB CONC 30.9 g/dL (30-36); MEAN PLATELET VOLUME 8.4 FL (6.5-11.5); RED BLOOD COUNT 3.44 X10e (3.90-5.30); WHITE BLOOD COUNT 12.2 X10e3 (4.0-10.5)
[2016-07-18 08:47] LABS: HEMATOCRIT 26.9 % (35.0-45.0); HEMOGLOBIN 8.4 gm/dL (12.0-16.0); MEAN CELL VOLUME 83.2 FL (83-96); MEAN CORPUSCULAR HEMOGLOBIN 25.9 PG (28-34); MEAN CORPUSCULAR HGB CONC 31.1 g/dL (30-36); MEAN PLATELET VOLUME 8.3 FL (6.5-11.5); RED BLOOD COUNT 3.23 X10e (3.90-5.30); RED CELL DISTRIBUTION WIDTH 17.2 % (11.0-15.5); WHITE BLOOD COUNT 10.5 X10e3 (4.0-10.5)
[2016-07-18 08:58] LABS: INR 1.3
[2016-07-18 10:06] LABS: BUN/CREATININE RATIO 4.95; CALCIUM SERUM 8.2 mg/dL (8.4-10.2); CREATININE SERUM 11.5 mg/dL (0.6-1.4); GLOM FILT RATE Estimated 4.2 mL/min (>60); MAGNESIUM 2.5 mg/dL (1.6-3.0)
[2016-07-18 10:08] LABS: POTASSIUM 5.9 mmol/L (3.5-5.1)
[2016-07-18] MEDS ORDERED: LOVENOX80 MG/0.8 INJ (18:05)
[2016-07-18] MEDS ORDERED: COUMADIN5 MG PO (18:07)
[2016-07-18] MEDS ORDERED: PHENERGAN12.5 MG PO (18:09)
[2016-07-18] MEDS ORDERED: NORVASC10 MG PO (18:11)
[2016-07-18] MEDS ORDERED: RENAGEL800 MG PO (18:12)
[2016-07-18] MEDS ORDERED: PROTONIX PO (18:13)
[2016-07-18] MEDS ORDERED: IMDUR PO (18:14)
[2016-07-18] MEDS ORDERED: LANTUS100 U/ML SUBQ (18:20)
== END 2016-07-18 19:50 | disposition home health service (06) | DRG 314 ==
LOC: CED 13:37 → C5B 18:40 → CEDOF 18:40 → C5B 07-07 03:50
PROVIDERS: Emergency Medicine; Family Medicine; Internal Medicine; Internal Medicine Gastroenterology; Internal Medicine Nephrology; Nurse Practitioner; Nurse Practitioner Family
PROC: 5A1D60Z (ICD-10-PCS; 2016-07-07)
PROC: B246YZZ Ultrasonography of Right and Left Heart using Other Contrast (ICD-10-PCS; 2016-07-07)
PROC: 05PYX3Z Removal of Infusion Device from Upper Vein, External Approach (ICD-10-PCS; 2016-07-07)
PROC: B246ZZ4 Ultrasonography of Right and Left Heart, Transesophageal (ICD-10-PCS; principal; 2016-07-11)
PROC: 30233N1 Transfusion of Nonautologous Red Blood Cells into Peripheral Vein, Percutaneous Approach (ICD-10-PCS; 2016-07-13)
PROC: 0DB78ZX Excision of Stomach, Pylorus, Via Natural or Artificial Opening Endoscopic, Diagnostic (ICD-10-PCS; 2016-07-14)
DX: T82.7XXA Infection and inflammatory reaction due to other cardiac and vascular devices, implants and grafts, initial encounter (principal); A41.02 Sepsis due to Methicillin resistant Staphylococcus aureus; N18.6 End stage renal disease; I33.0 Acute and subacute infective endocarditis; E87.2 Acidosis; E44.0 Moderate protein-calorie malnutrition; I12.0 Hypertensive chronic kidney disease with stage 5 chronic kidney disease or end stage renal disease; D69.6 Thrombocytopenia, unspecified; K26.9 Duodenal ulcer, unspecified as acute or chronic, without hemorrhage or perforation; Z68.41 Body mass index [BMI] 40.0-44.9, adult; I82.210 Acute embolism and thrombosis of superior vena cava; K22.10 Ulcer of esophagus without bleeding; E11.22 Type 2 diabetes mellitus with diabetic chronic kidney disease; E11.65 Type 2 diabetes mellitus with hyperglycemia; Z99.2 Dependence on renal dialysis; I95.1 Orthostatic hypotension; E83.39 Other disorders of phosphorus metabolism; E66.01 Morbid (severe) obesity due to excess calories; D63.1 Anemia in chronic kidney disease; E87.5 Hyperkalemia; R19.7 Diarrhea, unspecified; B95.62 Methicillin resistant Staphylococcus aureus infection as the cause of diseases classified elsewhere; E83.51 Hypocalcemia; E78.5 Hyperlipidemia, unspecified; K29.00 Acute gastritis without bleeding
CPT/HCPCS: 36415; 71010; 73701-LT; 80048; 80053; 80061; 80074; 80076; 80202; 82150; 82308; 82550; 82553; 82947; 83036; 83605; 83690; 83735; 83880; 84100; 84484; 84703; 85025; 85027; 85610; 86850; 86900; 86901; 86923; 87040; 87045; 87070; 87077; 87177; 87186; 87209; 87340; 87427; 87493; 87899; 93005; 93306; 93312; 94762; 96374; 96375; 99285; J0610; J0885; J1200; J1644; J1650; J1815; J2185; J2250; J2405; J3010; J3260; J3370; P9016; Q4081; Q9967

== ENCOUNTER 2016-09-14 17:12 | Emergency (ER) | payer MEDICARE, OTHER ==
[~2016-09-14] VITALS: Ht 167.6 cm; Wt 122.0 kg
[~2016-09-14 17:12] MED LIST changes: +CARVEDILOL25 MG PO; +COUMADIN5 MG PO; +HYDRALAZINE HCL50 MG PO; +IMDUR PO; +IMDUR-ER60 M2 PO; +LOVENOX80 MG/0.8 INJ; +PATIENT'S PHARMACY; +PHENERGAN12.5 MG PO; +PROTONIX PO; +RENAGEL800 MG PO; +XIFAXAN550 MG PO
[2016-09-14 20:06] LABS: URINE SOURCE CLEAN CATCH
[2016-09-14 20:11] LABS: BASOPHIL# 0.1 X10e3 (0-0.3); BASOPHIL% 0.7 % (0-2.5); EOSINOPHIL# 0.3 X10e3 (0-0.7); HEMATOCRIT 33.6 % (35.0-45.0); HEMOGLOBIN 10.9 gm/dL (12.0-16.0); LYMPHOCYTE# 1.4 X10e3 (1.0-3.5); LYMPHOCYTE% 15.7 % (17.0-45.0); MEAN CELL VOLUME 82.2 FL (83-96); MEAN CORPUSCULAR HEMOGLOBIN 26.6 PG (28-34); MEAN CORPUSCULAR HGB CONC 32.3 g/dL (30-36); MEAN PLATELET VOLUME 8.4 FL (6.5-11.5); MONOCYTE# 0.4 X10e3 (0-1.0); MONOCYTE% 4.3 % (3.0-12.0); NEUTROPHIL# 6.9 X10e3 (1.5-7.1); NEUTROPHIL% 76.3 % (40-75); PLATELET COUNT 371 X10e3 (140-420); RED BLOOD COUNT 4.09 X10e (3.90-5.30); RED CELL DISTRIBUTION WIDTH 17.8 % (11.0-15.5); WHITE BLOOD COUNT 9.1 X10e3 (4.0-10.5)
[2016-09-14] MEDS ORDERED: NEURONTIN PO (20:12)
[2016-09-14] MEDS ORDERED: GLUCOPHAGE500 MG PO (20:13)
[2016-09-14 20:14] LABS: URINE APPEARANCE CLEAR; URINE BILIRUBIN NEG (NEG); URINE BLOOD TRACE (NEG); URINE COLOR YELLOW; URINE GLUCOSE 250 MG/DL (NEG); URINE KETONE NEG (NEG); URINE LEUKOCYTE ESTERASE NEG (NEG); URINE NITRATE NEG (NEG); URINE PH 7.5 (5-8); URINE PROTEIN 3+ (NEG); URINE SPECIFIC GRAVITY 1.022 (1.003-1.035); URINE UROBILINOGEN 0.2 MG/DL (NEG)
[2016-09-14] MEDS ORDERED: SEROQUEL PO (20:14)
[2016-09-14] MEDS ORDERED: METOPROLOL TAR25 MG PO (20:15)
[2016-09-14 20:16] LABS: DIFF IND NO
[2016-09-14 20:16] LABS: CULTURE INDICATED? YES; URINE BACTERIA AUWI 1+ (NEGATIVE); URINE SQUAMOUS EPITHELIAL CELL FEW /[HPF]
[2016-09-14] MEDS ORDERED: DOCUSATE SODIU100 MG PO (20:16)
[2016-09-14] MEDS ORDERED: ALLOPURINOL300 MG PO (20:17)
[2016-09-14] MEDS ORDERED: LISINOPRIL20 MG PO (20:17)
[2016-09-14] MEDS ORDERED: ASPIRIN81 MG PO (20:18)
[2016-09-14] MEDS ORDERED: OMEPRAZOLE20 M1 PO (20:18)
[2016-09-14] MEDS ORDERED: THIAMINE HCL100 M2 PO (20:19)
[2016-09-14] MEDS ORDERED: IMDUR-ER30 M1 PO (20:19)
[2016-09-14] MEDS ORDERED: BACTRIM DS TAB1 EACH PO (20:21)
[2016-09-14] MEDS ORDERED: LASIX20 MG PO (20:21)
[2016-09-14] MEDS ORDERED: COUMADIN6 MG PO (20:22)
[2016-09-14] MEDS ORDERED: PERCOCET5/325 PO ×2 (20:24)
[2016-09-14] MEDS ORDERED: ATIVAN0.5 MG PO (20:25)
[2016-09-14] MEDS ORDERED: TYL325 PO (20:25)
[2016-09-14] MEDS ORDERED: HYDROXYZINE HCL10 MG PO (20:26)
[2016-09-14] MEDS ORDERED: MILK OF MAGNESIA PO (20:27)
[2016-09-14 20:31] LABS: PARTIAL THROMBOPLASTIN TIME 26.5 SECONDS (23.5-31.3); PROTHROMBIN TIME (PATIENT) 10.5 SECONDS (10.0-11.7)
[2016-09-14 20:37] LABS: ALBUMIN SERUM 3.8 g/dL (3.5-5.0); ALKALINE PHOSPHATASE 48 U/L (32-92); ALT (SGPT) 11 U/L (10-40); AST (SGOT) 14 U/L (10-42); BILIRUBIN, DIRECT <0.1 mg/dL (0.0-0.2); BILIRUBIN,INDIRECT 0.1 mg/dL (0.0-0.9); BILIRUBIN,TOTAL 0.2 mg/dL (0.2-2.0); BLOOD UREA NITROGEN 67 mg/dL (9-23); BUN/CREATININE RATIO 4.18; CALCIUM SERUM 7.2 mg/dL (8.4-10.2); CARBON DIOXIDE 26 mmol/L (22-31); CHLORIDE 96 mmol/L (100-111); GLOM FILT RATE Estimated 2.8 mL/min (>60); GLUCOSE FASTING 232 mg/dL (70-110); LIPASE 47 U/L (22-51); POTASSIUM 4.5 mmol/L (3.5-5.1); PROTEIN TOTAL SERUM 8.6 g/dL (6.0-8.3); SODIUM 135 mmol/L (135-145)
[2016-09-14] MEDS ORDERED: IMDUR PO (20:40)
[2016-09-14] MEDS ORDERED: HYDRALAZINE HC100 MG PO (20:40)
[2016-09-14] MEDS ORDERED: COUMADIN5 MG PO (20:41)
[2016-09-14] MEDS ORDERED: XIFAXAN550 MG PO (20:41)
[2016-09-14] MEDS ORDERED: CALCIUM ACETAT667 M1 PO (20:41)
[2016-09-14] MEDS ORDERED: LANTUS100 U/ML SUBQ (20:42)
[2016-09-14] MEDS ORDERED: LOVENOX80 MG/0.8 INJ (20:42)
[2016-09-14] MEDS ORDERED: NORVASC10 MG PO (20:42)
[2016-09-14] MEDS ORDERED: CARVEDILOL25 MG PO (20:42)
[2016-09-14 20:43] LABS: MAGNESIUM 2.3 mg/dL (1.6-3.0)
[2016-09-14] MEDS ORDERED: PROTONIX PO (20:43)
[2016-09-14] MEDS ORDERED: RENAGEL400 MG PO (20:43)
[2016-09-14] MEDS ORDERED: PRINIVIL40 MG PO (20:43)
[2016-09-14 20:45] LABS: PHOSPHOROUS 9.4 mg/dL (2.5-4.6)
== END 2016-09-14 23:53 | disposition home or self-care (01) ==
LOC: CED 17:12
PROVIDERS: Emergency Medicine
DX: R10.9 Unspecified abdominal pain (principal); R11.2 Nausea with vomiting, unspecified; R79.89 Other specified abnormal findings of blood chemistry; K21.9 Gastro-esophageal reflux disease without esophagitis; I12.0 Hypertensive chronic kidney disease with stage 5 chronic kidney disease or end stage renal disease; E11.22 Type 2 diabetes mellitus with diabetic chronic kidney disease; N18.6 End stage renal disease
CPT/HCPCS: 36415; 80048; 80076; 81003; 83690; 83735; 84100; 84703; 85025; 85610; 85730; 87086; 96372; 96374; 96375; 99284; C9113; J1650; J2405